=== PATIENT | male | born 1950 ===

== ENCOUNTER → 2017-01-20 | Outpatient (CLI) | payer MEDICARE ==
[2017-01-20 12:12] LABS: BASO # 0.1 x10^3/uL (0.0-0.2); BASO % 0 % (0-3); EOS % 1 % (0-3); HEMATOCRIT 27.3 % (39.0-53.0); HEMOGLOBIN 8.8 g/dL (13.0-17.5); LYMPH # 0.5 x10^3/uL (1.0-4.8); LYMPH % 3 % (24-48); MEAN CORPUSCULAR HEMOGLOBIN 29 pg (25-35); MEAN CORPUSCULAR HGB CONC 32 g/dL (31-37); MEAN CORPUSCULAR VOLUME 90 fL (79-100); MONO % 8 % (0-9); NEUT % 88 % (31-73); PLATELET COUNT 253 x10^3/uL (140-400); RED BLOOD COUNT 3.04 x10^6/uL (4.30-5.70); RED CELL DISTRIBUTION WIDTH 16.3 % (11.5-14.5)
[2017-01-20 12:34] LABS: ALBUMIN 2.5 g/dL (3.4-5.0); ALBUMIN/GLOBULIN RATIO 0.8 (1.0-1.7); CALCIUM 8.4 mg/dL (8.5-10.1); CREATININE 1.7 mg/dL (0.7-1.3); GFR 40.4; MAGNESIUM 1.8 mg/dL (1.8-2.4); PHOSPHORUS 3.7 mg/dL (2.6-4.7); TOTAL BILIRUBIN 1.3 mg/dL (0.2-1.0); TOTAL PROTEIN 5.7 g/dL (6.4-8.2)
[2017-01-20 13:11] LABS: ANISOCYTOSIS PRESENT; PLT ESTIMATE ADEQUATE (ADEQUATE)
== END | disposition home or self-care (01) ==
LOC: SPEC 12:02
PROVIDERS: ATTEND Internal Medicine
DX: Z45.2 Encounter for adjustment and management of vascular access device (principal); Z76.0 Encounter for issue of repeat prescription
CPT/HCPCS: 36415; 80053; 83690; 83735; 84100; 84134; 85007; 85027